=== PATIENT | female | born 1950 | race Caucasian/White ===

== ENCOUNTER → 2016-07-22 | Outpatient (CLI) | payer OTHER | LOC: FIMAGING 11:25 | PROVIDERS: ATTEND Internal Medicine | DX: S52.572A Other intraarticular fracture of lower end of left radius, initial encounter for closed fracture (principal) ==

== ENCOUNTER → 2018-03-10 | Outpatient (CLI) | payer OTHER | LOC: FIMAGING 17:48 | PROVIDERS: ATTEND Physician Assistant | DX: R22.2 Localized swelling, mass and lump, trunk (principal) ==

== ENCOUNTER → 2018-03-11 | Outpatient (CLI) | payer OTHER | LOC: BMCIMAGING 15:05 | PROVIDERS: ATTEND Internal Medicine | DX: Z13.820 Encounter for screening for osteoporosis (principal); M81.0 Age-related osteoporosis without current pathological fracture; M85.89 Other specified disorders of bone density and structure, multiple sites ==

== ENCOUNTER → 2018-03-26 | Outpatient (CLI) | payer OTHER ==
[~2018-03-26] MED LIST: GADOBUTROL 10 ML VIAL IVP ONE
== END | disposition home or self-care (01) ==
LOC: FIMAGING 11:39
PROVIDERS: ATTEND Internal Medicine
DX: M54.5 Low back pain (principal); M48.8X6 Other specified spondylopathies, lumbar region; M48.061 Spinal stenosis, lumbar region without neurogenic claudication; Z98.890 Other specified postprocedural states
CPT/HCPCS: 72149; A9585; 82565-PO

== ENCOUNTER → 2018-05-08 | Outpatient (CLI) | payer OTHER | LOC: FIMAGING 12:19 | DX: G95.9 Disease of spinal cord, unspecified (principal); M51.26 Other intervertebral disc displacement, lumbar region; M51.36 Other intervertebral disc degeneration, lumbar region; R90.89 Other abnormal findings on diagnostic imaging of central nervous system; M51.34 Other intervertebral disc degeneration, thoracic region | CPT/HCPCS: 70553; 72156; 72157; 72158; A9585; 82565-PO ==

== ENCOUNTER → 2018-08-04 | Outpatient (CLI) | payer OTHER | LOC: FIMAGING 10:08 | DX: G95.9 Disease of spinal cord, unspecified (principal); M51.36 Other intervertebral disc degeneration, lumbar region; M48.061 Spinal stenosis, lumbar region without neurogenic claudication | CPT/HCPCS: 72158; A9585; 82565-PO ==